=== PATIENT | female | born 1960 | race Caucasian/White ===

== ENCOUNTER 2019-11-27 20:03 | Emergency (ER) | payer OTHER, SELFPAY ==
[2019-11-27 20:05] VITALS: BP 131/102; PULSE 85; RESP 18; TEMP 36.2; O2SAT 100; BMI 19.3
--- NOTE | 2019-11-27 20:29 | ED.RN ---
PT DOES NOT HAVE PHONE NUMBER OF SOMEONE TO CLARIFY DRUG TESTING. NOT IN DATABASE
--- NOTE | 2019-11-27 21:35 | RAD_ITS ---
STUDY: X-RAY - LEFT KNEE REASON FOR EXAM: Female, 59 years old. Fall yesterday. Left knee pain. TECHNIQUE: 4 view(s) of the knee. COMPARISON: None. FINDINGS: Normal visualized distal femur. Normal visualized proximal tibia and fibula. Normal proximal tibiofibular articulation. There is moderate degenerative arthrosis of the medial femorotibial compartment with moderate joint space narrowing.There is severe degenerative arthrosis of the lateral femorotibial compartment with severe joint space narrowing. There is mild degenerative arthrosis of the patellofemoral articulation. There is a moderate volume joint effusion. There is a 7 mm ossification in the soft tissues posterior to the knee fairly far from the expected confines of the joint space unlikely to be a loose body. RAD/Knee 4 or More Views IMPRESSION: Normally located knee without fracture deformity. Moderate joint effusion versus hemarthrosis. Moderately advanced degenerative arthrosis of the medial and lateral compartment with mild degenerative arthrosis of the patellofemoral compartment. Electronically Signed: Alka Chaudhry MD at 22:06 EST , Service support ,
--- NOTE | 2019-11-27 22:27 | ED.DCSUM_ITS ---
- ER Visit Summary Date of Service: 11/27/19 Chief Complaint: Left knee pain History of Present Illness: The patient is a 59 F who presents with left knee pain that began after a fall yesterday. Patient slipped on ice and landed on concrete. Patient states her pain is worse with flexion. Patient denies any head injury or loss of consciousness. Patient denies any other injuries. Patient describes her pain is aching. Patient denies any paresthesias or weakness. Physical Examination: Vital signs are stable. Patient is afebrile. Patient is in no acute distress. Musculoskeletal exam reveals tenderness over the left knee. There is a mild effusion noted. There is no bony crepitance or step-off. Range of motion was limited in flexion secondary to pain. There is good extension. There is no laxity appreciated. There was guarding on exam however. Strength is 5/5 bilaterally in the lower extremities. Extensor mechanism is intact. There are no sensory deficits noted. Test Results: X-rays of the left knee were obtained. There is no acute fract ure. These were interpreted by the radiologist and myself. Emergency Department Course and Treatment: Patient was instructed to ice and elevate the left knee. Patient was instructed to take Tylenol or ibuprofen as needed for pain. Patient was instructed to follow-up with her primary care physician or [facility] in 5 to 7 days. Patient understood and was agreeable with the plan. All questions were answered. Disposition: Discharge home Impression: Left knee sprain This note was generated with [employer] dictation software. It may contain incorrect words, spelling, and punctuation that were not noted in review of the chart prior to signing ED Disposition - Plan for ED Patient: Disposition: Home or Assisted Living Diagnosis: Left knee sprain Instructions: Knee Sprain Referrals: Ramila Fisher MD [Primary Care Provider] - 5-7 Days
[2019-11-27 22:46] VITALS: RESP 18
== END 2019-11-27 22:46 | disposition home or self-care (01) ==
PROVIDERS: Emergency Provider Emergency Medicine; Family Provider Student in an Organized Health Care Education/Training Program; PCP Student in an Organized Health Care Education/Training Program
DX: S83.92XA Sprain of unspecified site of left knee, initial encounter (principal); F32.9 Major depressive disorder, single episode, unspecified; Z72.0 Tobacco use; Z79.899 Other long term (current) drug therapy; W00.0XXA Fall on same level due to ice and snow, initial encounter; Y93.01 Activity, walking, marching and hiking; Y92.89 Other specified places as the place of occurrence of the external cause; Y99.8 Other external cause status
CPT/HCPCS: 73564; 99282

== ENCOUNTER 2025-04-04 15:27 | Emergency (ER) | payer MEDICARE, SELFPAY ==
[2025-04-04 15:28] VITALS: BP 126/71; PULSE 89; RESP 16; TEMP 36.6; O2SAT 96; BMI 21.4
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
[2025-04-04 16:29] VITALS: BP 120/72; PULSE 89; RESP 16; TEMP 36.6; O2SAT 96
== END 2025-04-04 16:44 | disposition home or self-care (01) ==
PROVIDERS: Emergency Provider Emergency Medicine; PCP Family Medicine; Visit Provider Emergency Medicine
DX: S16.1XXA Strain of muscle, fascia and tendon at neck level, initial encounter (principal); M19.012 Primary osteoarthritis, left shoulder; S20.212A Contusion of left front wall of thorax, initial encounter; F17.210 Nicotine dependence, cigarettes, uncomplicated; S40.012A Contusion of left shoulder, initial encounter; V43.53XA Car driver injured in collision with pick-up truck in traffic accident, initial encounter
CPT/HCPCS: 71101; 73030; 99282